=== PATIENT | female | born 2000 | race Caucasian/White ===

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

== ENCOUNTER → 2020-01-19 | Outpatient (CLI) | payer BC ==
[~2020-01-19] MED LIST changes: +CYMBALTA30 MG PO; +LEXAPRO10 MG PO; +LOESTRIN 21 1-1 EACH PO
== END | disposition home or self-care (01) ==
LOC: COVID19 12:43
PROVIDERS: ATTEND Internal Medicine
DX: Z20.828 Contact with and (suspected) exposure to other viral communicable diseases (principal)

== ENCOUNTER → 2020-02-21 | Outpatient (CLI) | payer BC | END | disposition home or self-care (01) | LOC: COVID19 09:14 | PROVIDERS: ATTEND Internal Medicine | DX: U07.1 COVID-19 (principal) ==

== ENCOUNTER 2020-09-09 06:53 | Emergency (ER) | payer BC ==
[~2020-09-09] VITALS: Ht 170.1 cm; Wt 63.5 kg
[2020-09-09 07:26] LABS: BILIRUBIN Negative (Negative); BLOOD Negative (Negative); CLARITY Clear (Clear); COLOR Yellow (Yellow); GLUCOSE Negative (Negative); KETONE Negative (Negative); LEUKO ESTERASE 1+ (Negative); NITRITE Negative (Negative); PH 5.5 (4.5-8.0); SPECIFIC GRAVITY >= 1.030 (1.001-1.030)
[2020-09-09 07:49] LABS: BACTERIA 1+
[2020-09-09 08:29] LABS: BASO # 0.1 10*3/uL (0.0-0.1); BASO % 0.5 % (0.0-1.0); EOS # 0.2 10*3/uL (0.0-0.4); EOS % 1.9 % (1.0-4.0); HEMATOCRIT 37.3 % (37.0-47.0); LYMPH % 19.5 % (27.0-41.0); MEAN CELL VOLUME 90.5 fl (81.0-99.0); MEAN CORPUSCULAR HGB 30.3 pg (27.0-31.0); MEAN CORPUSCULAR HGB CONC 33.5 g/dl (33.0-37.0); MEAN PLATELET VOLUME 9.2 fl (9.6-12.3); MONO # 0.9 10*3/uL (0.1-1.0); MONO % 8.2 % (3.0-9.0); NEUT # 7.3 10*3/uL (2.3-7.9); NEUT % 69.6 % (47.0-73.0); PLATELET COUNT AUTOMATED 400 10*3/uL (130-400); RED BLOOD COUNT 4.12 10*6/uL (4.10-5.10); RED CELL DISTRI WIDTH 11.9 % (0-14.5); WHITE BLOOD COUNT 10.5 10*3/uL (4.8-10.8)
[2020-09-09 08:44] LABS: ALBUMIN 3.3 gm/dl (3.1-4.5); ALKALINE PHOSPHATASE 83 U/L (45-117); BUN 10 mg/dl (7-24); CHLORIDE 106 mmol/L (98-107); CREATININE 0.56 mg/dL (0.55-1.02); LIPASE 98 U/L (73-393); POTASSIUM 3.7 mmol/L (3.5-5.1); SGOT/AST 22 IU/L (3-35); SGPT/ALT 27 U/L (12-78); SODIUM 135 mmol/L (136-145); TOTAL PROTEIN 7.5 gm/dL (6.4-8.2)
[2020-09-09 08:48] LABS: BETA-HCG, QUANT < 1.0 mIU/mL (1-3)
[2020-09-09] MEDS ORDERED: PEPCID20 MG PO ×2 (09:51→09:56)
== END 2020-09-09 09:54 | disposition home or self-care (01) ==
LOC: ED 06:53
PROVIDERS: Emergency Medicine
DX: K21.9 Gastro-esophageal reflux disease without esophagitis (principal); Z79.899 Other long term (current) drug therapy

== ENCOUNTER → 2021-01-21 | Outpatient (CLI) | payer BC ==
[~2021-01-21] MED LIST changes: +PEPCID20 MG PO
== END | disposition home or self-care (01) ==
LOC: CT 08:54
PROVIDERS: ATTEND Internal Medicine
DX: R10.84 Generalized abdominal pain (principal); K92.1 Melena

== ENCOUNTER 2021-08-25 14:08 | Emergency (ER) | payer SELFPAY ==
[~2021-08-25] VITALS: Wt 63.5 kg
[2021-08-25] MEDS ORDERED: VIBRAMYCIN HYC100 MG PO (15:11)
== END 2021-08-25 15:15 | disposition home or self-care (01) ==
LOC: ED 14:08
DX: S70.362A Insect bite (nonvenomous), left thigh, initial encounter (principal); Z79.899 Other long term (current) drug therapy; W57.XXXA Bitten or stung by nonvenomous insect and other nonvenomous arthropods, initial encounter; Y93.89 Activity, other specified; Y92.89 Other specified places as the place of occurrence of the external cause; Y99.8 Other external cause status

== ENCOUNTER → 2021-11-02 | Outpatient (CLI) | payer OTHER ==
[~2021-11-02] MED LIST changes: +VIBRAMYCIN HYC100 MG PO
[2021-11-02 11:19] LABS: BASO # 0.1 10*3/uL (0.0-0.1); BASO % 0.8 % (0.0-1.0); EOS # 0.1 10*3/uL (0.0-0.4); EOS % 1.6 % (1.0-4.0); LYMPH # 1.7 10*3/uL (1.3-4.4); LYMPH % 25.8 % (27.0-41.0); MEAN CELL VOLUME 91.7 fl (81.0-99.0); MEAN CORPUSCULAR HGB 31.4 pg (27.0-31.0); MEAN CORPUSCULAR HGB CONC 34.3 g/dl (33.0-37.0); MEAN PLATELET VOLUME 9.4 fl (9.6-12.3); MONO # 0.6 10*3/uL (0.1-1.0); MONO % 8.7 % (3.0-9.0); NEUT % 62.8 % (47.0-73.0); PLATELET COUNT AUTOMATED 352 10*3/uL (130-400); RED BLOOD COUNT 4.36 10*6/uL (4.10-5.10); RED CELL DISTRI WIDTH 11.7 % (0-14.5); WHITE BLOOD COUNT 6.4 10*3/uL (4.8-10.8)
[2021-11-02 11:36] LABS: BUN 10 mg/dl (7-24); CHLORIDE 108 mmol/L (98-107); CHOLESTEROL 209 mg/dL (<200); CREATININE 0.57 mg/dL (0.55-1.02); LDL CHOLESTEROL 141 mg/dL (9-159); POTASSIUM 3.9 mmol/L (3.5-5.1); SGOT/AST 16 IU/L (3-35); SGPT/ALT 22 U/L (12-78); SODIUM 139 mmol/L (136-145); TOTAL PROTEIN 7.4 gm/dL (6.4-8.2); TRIGLYCERIDES 99 mg/dl (<150)
[2021-11-02 11:42] LABS: ALKALINE PHOSPHATASE 102 U/L (45-117); FREE T4 0.92 ng/dl (0.76-1.46)
[2021-11-02 12:11] LABS: VITAMIN D, 25-HYDROXY 36.6 ng/mL (30-100)
== END | disposition home or self-care (01) ==
LOC: LAB 10:59
PROVIDERS: ATTEND Internal Medicine
DX: Z13.0 Encounter for screening for diseases of the blood and blood-forming organs and certain disorders involving the immune mechanism (principal); Z13.1 Encounter for screening for diabetes mellitus; Z13.89 Encounter for screening for other disorder; Z13.220 Encounter for screening for lipoid disorders; Z13.228 Encounter for screening for other metabolic disorders; Z13.6 Encounter for screening for cardiovascular disorders; D51.9 Vitamin B12 deficiency anemia, unspecified; D52.9 Folate deficiency anemia, unspecified; E03.9 Hypothyroidism, unspecified; R53.81 Other malaise; R79.89 Other specified abnormal findings of blood chemistry

== ENCOUNTER → 2022-09-11 | Outpatient (CLI) | payer OTHER | END | disposition home or self-care (01) | LOC: LAB 17:11 | PROVIDERS: ATTEND Internal Medicine | DX: N91.2 Amenorrhea, unspecified (principal) ==

== ENCOUNTER → 2022-10-04 | Outpatient (CLI) | payer OTHER ==
[2022-10-04 17:42] LABS: BASO % 0.4 % (0.0-1.0); EOS # 0.1 10*3/uL (0.0-0.4); EOS % 0.7 % (1.0-4.0); HEMATOCRIT 37.3 % (37.0-47.0); MEAN CELL VOLUME 87.4 fl (81.0-99.0); MEAN CORPUSCULAR HGB 31.1 pg (27.0-31.0); MEAN CORPUSCULAR HGB CONC 35.7 g/dl (33.0-37.0); MEAN PLATELET VOLUME 9.4 fl (9.6-12.3); MONO # 0.7 10*3/uL (0.1-1.0); MONO % 7.9 % (3.0-9.0); NEUT # 5.3 10*3/uL (2.3-7.9); NEUT % 57.8 % (47.0-73.0); PLATELET COUNT AUTOMATED 356 10*3/uL (130-400); RED BLOOD COUNT 4.27 10*6/uL (4.10-5.10); RED CELL DISTRI WIDTH 11.7 % (0-14.5); WHITE BLOOD COUNT 9.2 10*3/uL (4.8-10.8)
[2022-10-05 05:06] LABS: HEPATITIS B SURFACE AG Negative (Negative)
[2022-10-06 20:07] LABS: T.PALLIDUM ANTIBODIES Non Reactive (Non Reactive)
== END | disposition home or self-care (01) ==
LOC: LAB 17:12
PROVIDERS: ATTEND Nurse Practitioner Family
DX: Z34.00 Encounter for supervision of normal first pregnancy, unspecified trimester (principal); Z36.9 Encounter for antenatal screening, unspecified; Z3A.00 Weeks of gestation of pregnancy not specified

== ENCOUNTER 2024-07-23 02:43 | Emergency (ER) | payer OTHER, BC ==
[~2024-07-23] VITALS: Ht 170.1 cm; Wt 65.8 kg
[2024-07-23] MEDS ORDERED: Ondansetron Hydrochloride 4 MG/2 ML VIAL IV ONE (03:20)
[2024-07-23] MEDS ORDERED: SODIUM CHLORIDE 0.9% 1,000 ML IV ONE (03:20)
[2024-07-23 03:33] LABS: HEMATOCRIT 40.4 % (37.0-47.0); MEAN CELL VOLUME 88.8 fl (81.0-99.0); MEAN CORPUSCULAR HGB 30.5 pg (27.0-31.0); MEAN CORPUSCULAR HGB CONC 34.4 g/dl (33.0-37.0); MEAN PLATELET VOLUME 9.4 fl (9.6-12.3); PLATELET COUNT AUTOMATED 281 10*3/uL (130-400); RED BLOOD COUNT 4.55 10*6/uL (4.10-5.10); RED CELL DISTRI WIDTH 11.9 % (0-14.5); WHITE BLOOD COUNT 4.7 10*3/uL (4.8-10.8)
[2024-07-23 03:34] LABS: MANUAL DIFF REFLEX YES
[2024-07-23 03:55] LABS: BUN 8 mg/dl (9-23); CHLORIDE 106 mmol/L (98-107); POTASSIUM 3.5 mmol/L (3.4-5.1)
[2024-07-23 04:08] LABS: BASOPHILS 2 % (0-1); TOTAL CELLS COUNTED 100 #CELLS
[2024-07-23 04:09] LABS: OVALOCYTES FEW; PLATELET SUFFICIENCY NORMAL (NORMAL)
[2024-07-23] MEDS ORDERED: Ondansetron4 MG PO (04:36)
[2024-07-23] MEDS ORDERED: PROCTOZONE-HC30 GM R (04:36)
== END 2024-07-23 04:40 | disposition home or self-care (01) ==
LOC: ED 02:43
PROVIDERS: Internal Medicine
DX: K52.9 Noninfective gastroenteritis and colitis, unspecified (principal); Z79.899 Other long term (current) drug therapy